=== PATIENT | male | born 1955 | race Two or more races ===

== ENCOUNTER 2020-02-17 13:43 | Emergency (ER) | payer OTHER ==
[~2020-02-17] VITALS: Ht 160 cm; Wt 81.6 kg
--- NOTE | 2020-02-17 14:00 | NUR ---
[id number], picked up at the bus stop, c/o back pain, left leg, and testicle x 7 days, s/p picked up something and hurt his back, 8/10 pain scale. Patient a/ox4, breathing even and unlabored, no sob noted, needs attended, kept comfortable. Patient able to ambulate. No distress noted.
[2020-02-17] MEDS ORDERED: HYDROCODONE/APAP 5/325MG TABLET ONE (14:30)
[2020-02-17] MEDS ORDERED: HYDROCODONE/APAP 10/325MG TABLET PO ONE (14:30)
[2020-02-17] MEDS ORDERED: HYDROCODONE/APAP 5/325MG TABLET PO ONE (15:00)
--- NOTE | 2020-02-17 15:47 | NUR ---
Patient a/ox4, pain has improved per patient. Ambulatory with steady gait. No distress noted. Needs attended. Patient discharged to home in stable condition. Written and verbal after care instructions given. Patient verbalizes understanding of instruction.
[2020-02-17 15:48] VITALS: BP 130/62
--- NOTE | 2020-02-17 15:49 | NUR ---
Patient given written and verbal discharge instructions. Patient verbalizes understanding of instructions. Patient is ambulatory with steady gait. Refuses offer of detention placement. Patient given list of available shelters in surrounding area.
== END 2020-02-17 15:49 | disposition home or self-care (01) ==
LOC: ER 13:49
DX: M54.5 Low back pain (principal); R10.32 Left lower quadrant pain; I10 Essential (primary) hypertension; Z59.0 Homelessness